=== PATIENT | female | born 1990 | race Two or more races ===

== ENCOUNTER 2024-10-19 08:15 | Day surgery (SDC) | payer MEDICAID, SELFPAY ==
--- NOTE | 2024-10-15 16:12 | ESHP_ITS ---
RE: BORIS SLAUGHTER : 1990 DATE OF ADMISSION: 10/19/2024 HISTORY OF PRESENT ILLNESS: This is a 34-year-old 6, para 2-0-4-2, who has abnormal uterine bleeding, which is a significant quality of life issue for her. She declines future fertility. ALLERGIES: NO KNOWN DRUG ALLERGIES. MEDICATIONS: None. PAST MEDICAL HISTORY: Denies. PAST SURGICAL HISTORY: Laparoscopic bilateral salpingectomy. SOCIAL HISTORY: She denies any alcohol, drug use, or smoking. OBSTETRIC HISTORY: 2 previous full-term normal vaginal deliveries and 4 previous miscarriages. REVIEW OF SYSTEMS: She denies any chest pain, palpitations, cough, fever, shortness of breath, or lower extremity pain. PHYSICAL EXAMINATION: VITAL SIGNS: Blood pressure 120/84 mmHg, heart rate 88, respirations 16, temperature is 90.8. HEENT: Oropharynx and sclerae are clear. LUNGS: Clear to auscultation bilaterally. HEART: Regular rate and rhythm. ABDOMEN: Old trocar scars noted. EXTREMITIES: Nontender. SKIN: No gross rashes or lesions. NEUROLOGIC: No focal deficits. ASSESSMENT: Abnormal uterine bleeding. PLAN: Hysteroscopy, fractional dilatation and curettage, and NovaSure endometrial ablation. Informed consent was obtained. The patient was made aware of the risks, complications, alternatives, and benefits of the proposed procedure and she agrees. She is aware of the risk of injury to bowel, bladder, adjacent organs, uterus, ureters, pulmonary embolism, deep vein thrombosis, injury to the vessels of the abdominal wall, hematoma, abscess, wound infection, wound dehiscence, pelvic infection, reoperation to repair injury to internal organs, anesthesia complications, and the possibility a laparotomy needs to be performed to complete the procedure or control bleeding and the possibility the procedure is unable to be completed due to severe adhesions or technical difficulties. DT: 15:12:19 TT: 16:09:00 Ref: [id number] - TID: [id number] MTDD
[2024-10-18 07:28] VITALS: BMI 29.0
[2024-10-18 08:06] LABS: Basophils # (Auto) 0.1 Thou/mm3 (0.0-0.2); Basophils % (Auto) 1 % (0-2.5); Eosinophils # (Auto) 0.1 Thou/mm3 (0.0-0.5); Eosinophils % (Auto) 1 % (0-10); Hematocrit 39.4 % (36.0-46.0); Hemoglobin 13.6 g/dL (12.0-16.0); Immature Granulocytes % (Auto) 0 % (0-0); Immature Granulocytes Auto 0.01 Thou/mm3 (0.00-0.00); Lymphocytes % (Auto) 30 % (10-50); Mean Corpuscular HGB Conc 34.5 g/dl (31.0-37.0); Mean Corpuscular Hemoglobin 31.4 pg (25.0-35.0); Mean Corpuscular Volume 91 fL (80-100); Monocytes # (Auto) 0.3 Thou/mm3 (0.0-0.8); Monocytes % (Auto) 5 % (0-12); Neutrophils # (Auto) 4.3 Thou/mm3 (1.8-7.7); Neutrophils % (Auto) 64 % (37-80); Nucleated Red Blood Cell % 0 /100 WBC (0); Platelet Count 285 Thou/mm3 (140-440); RDW Standard Deviation 40.4 fL (36.4-46.3); Red Blood Count 4.33 Miln/mm3 (4.00-5.20); White Blood Count 6.8 Thou/mm3 (3.6-11.0)
[2024-10-18 08:32] LABS: Alanine Aminotransferase 10 U/L (10-49); Albumin, Serum 4.1 gm/dL (3.5-5.0); Albumin/Globulin Ratio 1.4 (1.2-2.2); Alkaline Phosphatase 60 U/L (46-116); Anion Gap 5 (7-16); Aspartate Amino Transferase 14 U/L (0-34); BUN/Creatinine Ratio 17 Ratio (12-20); Beta HCG,Quantitative < 1 mIU/mL (<5.0); Bilirubin,Total 0.4 mg/dL (0.3-1.2); Blood Urea Nitrogen 12 mg/dL (9-23); Calcium 8.8 mg/dL (8.3-10.6); Calcium (Corrected) 8.8 mg/dL (8.5-10.1); Carbon Dioxide 23.7 mMol/L (20.0-31.0); Chloride 107 mMol/L (98-107); Creatinine (Component) 0.7 mg/dL (0.6-1.3); Glucose 78 mg/dL (74-106); Osmolality,Calculated 270 (275-295); Sodium 136 mMol/L (136-145); Total Protein 7.1 gm/dL (5.7-8.2); eGFR > 60 See Note
[2024-10-18 09:03] LABS: Partial Thromboplastin Time 26.4 Seconds (22.0-36.0); Prothrombin Time 10.7 Seconds (9.0-12.2)
[2024-10-19] VITALS (7 sets, daily range): BP systolic 113–143; BP diastolic 51–83; PULSE 65–88; RESP 12–18; TEMP 36.4–36.9; O2SAT 99–100; BMI 29.8
--- NOTE | 2024-10-19 11:36 | SUR.PHASEI ---
1136 [place] [facility] [place] 8[place] via oxy mask, breathing unlabored, vital signs stable, denies pain, dressing intact to vaginal area; peripad, no bleeding noted, denies nausea, report received from Columba DOMINGUEZ/Nick DOMINGUEZ and Dr. Hassan
[2024-10-19] MEDS: KETOROLAC INJ 30 MG/ML VIAL IVP (11:52)
[2024-10-19] MEDS: ACETAMINOPHEN IVPB 1,000 MG/100 ML VIAL 250 MG IV (11:53)
--- NOTE | 2024-10-19 12:27 | SUR.PHASEII ---
1227 Patient meets discharge criteria from recovery, awake and alert, breathing unlabored, vital signs stable, denies pain, dressing intact; no bleeding noted, eating ice chips; denies nausea, patient assisted with dressing into her clothing by her , discharge instructions given to patient and patients , signed discharge instructions. Patient given all her belongings prior to discharge, transported via wheelchair and left in a private vehicle.
--- NOTE | 2024-10-20 11:58 | ESOP_ITS ---
RE: BORIS SLAUGHTER : 1990 DATE OF OPERATION: 10/19/2024 PREOPERATIVE DIAGNOSES: Abnormal uterine bleeding. Dysmenorrhea. POSTOPERATIVE DIAGNOSES: Abnormal uterine bleeding. Dysmenorrhea. PROCEDURE PERFORMED: Hysteroscopy, MyoSure removal of endometrial polyps and fracture dilatation and curettage, and NovaSure endometrial ablation. SURGEON: Darian Garg DO [employer] ASSEMBLER: None. ANESTHESIA: General. ANESTHESIOLOGIST: Dr. Hassan ESTIMATED BLOOD LOSS: 10 mL. COMPLICATIONS: None. COUNTS: Correct. PATHOLOGY: 1. Endocervical curettings. 2. Endometrial curettings. 3. Endometrial polyps. FINDINGS: Uterus sounds to 7.0 cm, anteverted. Cervical length is 3.0 cm. Uterine cavity length is 4.0 cm. Uterine cavity width is 2.9 cm. Power setting was 64 johns. Duration of ablation was 1 minute and 50 seconds. Fluids absorbed hysteroscopically is 200 mL of normal saline. Uterine cavity contained hypertrophic endometrial tissue suggestive of multiple polypoid growth in the posterior fundal aspect of the uterus. DESCRIPTION OF PROCEDURE: After proper informed consent was obtained and the patient made aware of the risks, complications, alternatives, and benefits of the proposed procedure, she was taken to the operating room where she underwent induction of general anesthesia. She was prepped and draped in the usual sterile fashion. A timeout was performed. A speculum was placed in the vagina. A single-tooth tenaculum was used to grasp the anterior lip of the cervix. The endocervix was dilated to accommodate the 5.5 mm Omni hysteroscope. The hysteroscope was then utilized to visualize the endocervix and uterine cavity and the above findings noted. The MyoSure Reach device was then utilized to perform the polypectomy. Specimen sent to Pathology. The endocervix was curetted with a Kevorkian curette and specimen sent to Pathology. The uterine cavity was curetted with a 5-mm curette and specimen sent to Pathology. The NovaSure catheter was placed in the uterine cavity and the carbon dioxide cavity integrity assessment test was performed. The ablation was performed for a total of 1 minute and 50 seconds. The controller shut off. The array was retracted into the sheath, removed from the uterine cavity, redeployed and found to be completely intact. There was no bleeding at the end of the procedure. All instruments were removed from the vagina. She was reversed from general anesthesia in the supine position and transferred to the recovery room in stable condition. She tolerated the procedure well. Counts were correct. DT: 11:52:14 TT: 16:35:00 Ref: [id number] - TID: [id number]
== END 2024-10-19 12:27 | disposition home or self-care (01) ==
LOC: S2EX 14:37
PROVIDERS: PCP Registered Nurse Community Health; Referring Provider Specialist; Visit Provider Specialist
PROC: 0UJD8ZZ Inspection of Uterus and Cervix, Via Natural or Artificial Opening Endoscopic (ICD-10-PCS; CPT 58555; principal; 2024-10-19 10:15)
DX: N84.0 Polyp of corpus uteri (principal); N94.6 Dysmenorrhea, unspecified; N93.9 Abnormal uterine and vaginal bleeding, unspecified
CPT/HCPCS: 58563; 36415; 80053; 84702; 85025; 85610; 85730; 86850; 86900; 86901; A4217; A4649; J0131; J0690; J1100; J1885; J2250; J2405; J2704; J3010